=== PATIENT | female | born 1985 | race Native Hawaiian/Other Pacific Islander ===

== ENCOUNTER 2018-11-05 08:49 | Outpatient (CLI) | payer OTHER ==
[2018-11-05] MEDS ORDERED: IOTHALAMATE MEGLUMINE 50 ML VIAL ONE (09:08)
[2018-11-05] MEDS ORDERED: GADOBUTROL 10 MMOL/10 ML VIAL ONE (09:09)
[2018-11-05] MEDS ORDERED: GADOPENTETATE DIMEGLUMINE 5 ML VIAL IVP ONE ×2 (09:10→10:05)
[2018-11-05] MEDS ORDERED: BUFFERED LIDOCAINE 10 ML SYRINGE ONE (09:11)
[2018-11-05] MEDS ORDERED: IOTHALAMATE MEGLUMINE 50 ML VIAL IVP ONE (10:05)
[2018-11-05] MEDS ORDERED: BUFFERED LIDOCAINE 10 ML SYRINGE IU ONE (10:05)
--- NOTE | 2018-11-05 13:29 | XRAY Report ---
Reason: PAIN IN UNSPECIFIED SHOULDER Procedure Date: 11/05/2018 Accession Number: [id number] / [id number] Procedure: FL - Arthrogram Needle Placement CPT Code: FULL RESULT: EXAM: LEFT SHOULDER ARTHROGRAPHIC INJECTION WITH FLUOROSCOPIC GUIDANCE EXAM DATE: 11/05/2018 09:52 AM. CLINICAL HISTORY: Pain left shoulder COMPARISON: None. TECHNIQUE: The risks, benefits, and alternatives of the procedure were discussed with the patient. All questions were answered. Written and verbal consent were obtained. The left glenohumeral joint was marked under fluoroscopy and prepped and draped in a sterile manner. Local anesthesia was performed with 1% lidocaine. A 22-gauge needle was then inserted into the glenohumeral joint. 10 mL of a dilute gadolinium solution was then injected. The needle was removed without immediate complication. Other: None. Fluoroscopy Time: 45 seconds. Number of Images: 1. FINDINGS: Bones and joints: No fracture or subluxation. Injection: Fluoroscopic images demonstrate needle placement and contrast in the left glenohumeral joint. No contrast extravasation outside of the glenohumeral joint. IMPRESSION: Successful fluoroscopically guided arthrographic injection of the left shoulder. RADIA
--- NOTE | 2018-11-06 16:19 | MRI Report ---
Reason: PAIN IN UNSPECIFIED SHOULDER Procedure Date: 11/05/2018 Accession Number: [id number] / [id number] Procedure: MRI - Arthrogram Shoulder LT CPT Code: FULL RESULT: EXAM: LEFT SHOULDER MRI ARTHROGRAM WITH CONTRAST EXAM DATE: 11/05/2018 10:40 AM. CLINICAL HISTORY: Left shoulder pain. Limited range of motion. COMPARISON: None. TECHNIQUE: Multiplanar, multisequence T1-weighted and fluid-sensitive sequences of the shoulder after an arthrographic injection of dilute gadolinium, dictated under a separate exam. Other: None. FINDINGS: Acromioclavicular Region: The acromion is type I. The acromioclavicular joint is unremarkable. The coracoacromial and coracoclavicular ligaments are intact. There is no contrast or fluid in the subacromial/subdeltoid bursa. Glenohumeral Region: No subluxation. No loose bodies. The articular cartilage is unremarkable. The glenohumeral ligaments and joint capsule are unremarkable. Bone Marrow: No fracture, marrow edema or bone lesions. Labrum: The labrum is unremarkable. Biceps Tendon: The long head of the biceps tendon and biceps sherif are intact. Musculature/Rotator Cuff: Minimal articular surface fraying at the supraspinatus tendon. The infraspinatus, teres minor, and subscapularis tendons are unremarkable. No edema or fatty atrophy. Other: The subcutaneous tissues are unremarkable. IMPRESSION: 1. Minimal articular surface fraying at the supraspinatus tendon. 2. No labral tear. RADIA
== END 2018-11-05 08:50 | disposition home or self-care (01) ==
LOC: DI 08:49 → MERGE 09:00
PROVIDERS: ATTEND Nurse Practitioner Family
DX: M25.512 Pain in left shoulder (principal)
CPT/HCPCS: 23350; 73222; 77002; Q9961

== ENCOUNTER 2019-08-04 10:28 | Emergency (ER) | payer OTHER ==
[2019-08-04 11:25] LABS: BASOPHILS # (AUTO) 0.1 10^3/uL (0.0-0.1); BASOPHILS % (AUTO) 0.6 %; EOSINOPHILS # (AUTO) 0.1 10^3/uL (0.0-0.7); EOSINOPHILS % (AUTO) 1.3 %; HGB - HEMOGLOBIN 14.2 g/dL (12.0-16.0); LYMPHOCYTES # (AUTO) 2.3 10^3/uL (1.5-3.5); MEAN CORPUSCULAR HEMOGLOBIN 29.2 pg (27.0-31.0); MEAN CORPUSCULAR HGB CONC 33.1 g/dL (32.0-36.0); MEAN CORPUSCULAR VOLUME 88.1 fL (81.0-99.0); MEAN PLATELET VOLUME 10.8 fL (7.9-10.8); MONOCYTES # (AUTO) 0.4 10^3/uL (0.0-1.0); MONOCYTES % (AUTO) 3.9 %; NEUTROPHILS # (AUTO) 7.2 10^3/uL (1.5-6.6); NEUTROPHILS % (AUTO) 70.8 %; PLT - PLATELET COUNT 237 10^3/uL (130-450); RED BLOOD COUNT 4.87 10^6/uL (4.20-5.40); RED CELL DISTRIBUTION WIDTH 12.5 % (12.0-15.0); WHITE BLOOD COUNT 10.2 x10^3/uL (4.8-10.8)
[2019-08-04 11:38] LABS: ALBUMIN 4.4 g/dL (3.2-5.5); ALBUMIN/GLOBULIN RATIO 1.2 (1.0-2.2); BILIRUBIN,TOTAL 0.6 mg/dL (0.2-1.0); CALCIUM 9.3 mg/dL (8.5-10.3); CREATININE 0.9 mg/dL (0.4-1.0)
--- NOTE | 2019-08-04 12:33 | ED Physician Documentation ---
History of Present Illness - Stated complaint Stated Complaint: CP - Chief complaint Chief Complaint: Cardiac - History obtained from History obtained from: Patient - History of Present Illness Timing: Today - Additonal information Additional information: Patient comes emergency department complaining of pain in a line just to the left of her sternum since this morning. Patient states that hurts worse to take a deep breath. She denies any cough or fever. No shortness of breath. No nausea or vomiting. Patient states she has felt bloated in her abdomen but does not have abdominal pain. No radiation of the pain to anywhere else. No diaphoresis or lightheadedness. Patient is otherwise healthy. She has no history of diabetes, hypertension, or hyperlipidemia. She denies any decreased exercise tolerance recently. She states she does have a history in the family of coronary artery disease but this does not occur until older age. No family members with MIs in 20s, 30s or 40s. Patient states her pain seems to be a little better than it was earlier. She states she began to feel little bit anxious after the pain did not go away after eating. Patient denies any history of ulcers or GERD. No other complaints at this time. Review of Systems Ten Systems: 10 systems reviewed and negative Constitutional: reports: Reviewed and negative Eyes: reports: Reviewed and negative Ears: reports: Reviewed and negative Nose: reports: Reviewed and negative Throat: reports: Reviewed and negative Cardiac: reports: Chest pain / pressure Respiratory: reports: Reviewed and negative GI: reports: Reviewed and negative : reports: Reviewed and negative Skin: reports: Reviewed and negative Musculoskeletal: reports: Reviewed and negative Neurologic: reports: Reviewed and negative Psychiatric: reports: Reviewed and negative Endocrine: reports: Reviewed and negative Immunocompromised: reports: Reviewed and negative PD PAST MEDICAL HISTORY - Past Medical History Past Medical History: No - Past Surgical History Past Surgical History: No - Allergies Allergies/Adverse Reactions: Allergies Allergy/AdvReac Type Severity Reaction Status Date / Time No Known Drug Allergies Allergy Verified 08/04/19 10:44 - Social History Does the pt smoke?: No Smoking Status: Never smoker Does the pt drink ETOH?: No Does the pt have substance abuse?: No PD ED PE NORMAL - Vitals Vital signs reviewed: Yes - General General: Alert and oriented X 3, No acute distress - HEENT HEENT: PERRL - Neck Neck: Supple, no meningeal sign - Cardiac Cardiac: RRR, No murmur - Respiratory Respiratory: Clear bilaterally - Abdomen Abdomen: Soft, Non tender, Non distended - Derm Derm: Warm and dry - Extremities Extremities: No deformity - Neuro Neuro: Alert and oriented X 3, stopper grinder 2-12 intact, No motor deficit, No sensory deficit, Normal speech - Psych Psych: Normal mood, Normal affect Results - Vitals Vitals: Vital Signs - 24 hr 08/04/19 08/04/19 08/04/19 10:42 12:03 12:44 Temperature 36.5 C Heart Rate 88 72 Respiratory 15 26 H Rate Blood Pressure 128/96 H 135/65 H Blood Pressure 128/96 H [Right] O2 Saturation 97 99 08/04/19 14:00 Temperature 36.9 C Heart Rate 75 Respiratory 20 Rate Blood Pressure 128/62 Blood Pressure [Right] O2 Saturation 98 Oxygen O2 Source Room air - EKG (time done) 1042 Rate: Rate (enter#) (76) Rhythm: NSR Mcdowell: Normal Intervals: Normal CO QRS: Normal Ischemia: Normal ST segments. No: Hyperacute T waves, T wave inversion Compare to prior EKG: Old EKG unavailable Computer interpretation: Agree with computer (Interpreted by EDMD) - Labs Labs: Laboratory Tests 08/04/19 08/04/19 08/04/19 11:19 11:19 11:19 WBC 10.2 RBC 4.87 Hgb 14.2 Hct 42.9 MCV 88.1 MCH 29.2 MCHC 33.1 RDW 12.5 Plt Count 237 MPV 10.8 Neut # (Auto) 7.2 H Lymph # (Auto) 2.3 Liberty # (Auto) 0.4 Eos # (Auto) 0.1 Baso # (Auto) 0.1 Absolute Nucleated RBC 0.00 Nucleated RBC % 0.0 Sodium 137 Potassium 3.7 Chloride 102 Carbon Dioxide 26 Anion Gap 9.0 BUN 10 Creatinine 0.9 Estimated GFR (MDRD) 71 L Glucose 144 H Calcium 9.3 Total Bilirubin 0.6 AST 18 ALT 14 Alkaline Phosphatase 63 Troponin I High Sens < 2.3 L Total Protein 8.0 Albumin 4.4 Globulin 3.6 Albumin/Globulin Ratio 1.2 Lipase 32 - Rads (name of study) Chest x-ray Radiology: Final report received, EMP read indepedently (Final radiologic impression: No acute radiographic cardiopulmonary process) PD MEDICAL DECISION MAKING - ED course Complexity details: reviewed old records, reviewed results, re-evaluated patient, considered differential, d/w patient ED course: Patient was very well-appearing, and was very low risk for coronary artery disease. Additionally, her EKG and troponin were normal. I discussed with the patient that I do not find any evidence of an emergent condition causing her pain. I feel most likely, the pain is musculoskeletal in origin and we have discussed symptomatic management of this. We have also discussed the usual indications for return and follow-up. Departure - Departure Disposition: 01 Home, Self Care Clinical Impression: Chest wall pain Condition: Good Instructions: ED Chest Pain Costochondritis Comments: Your labs, EKG, and chest x-ray all look good. There is no evidence of an emergent condition causing your pain today. Additionally, your very low risk for any cardiac problems at this time. Please follow-up with your primary care physician as needed. Discharge Date/Time: 08/04/19 14:10
--- NOTE | 2019-08-04 13:30 | XRAY Report ---
Reason: CHEST PAIN Procedure Date: 08/04/2019 Accession Number: [id number] / [id number] Procedure: XR - Chest 2 View X-Ray CPT Code: 59375 Final Report FULL RESULT: EXAM: CHEST RADIOGRAPHY EXAM DATE: 08/04/2019 01:15 PM. CLINICAL HISTORY: CHEST PAIN. COMPARISON: None. TECHNIQUE: 2 views. FINDINGS: Lungs/Pleura: No focal opacities evident. No pleural effusion. No pneumothorax. Normal volumes. Mediastinum: Heart and mediastinal contours are unremarkable. Other: None. IMPRESSION: No acute radiographic cardiopulmonary process RAD[facility]
[2019-08-04 14:10] VITALS: BP 128/62
== END 2019-08-04 14:10 | disposition home or self-care (01) ==
LOC: ED 10:28
DX: R07.89 Other chest pain (principal); Z82.49 Family history of ischemic heart disease and other diseases of the circulatory system
CPT/HCPCS: 36415; 71046; 80053; 83690; 84484; 85025; 93005; 99284

== ENCOUNTER 2020-10-25 16:45 | Emergency (ER) | payer OTHER ==
[2020-10-25] MEDS ORDERED: ACETAMINOPHEN 325 MG TABLET PO STA (17:12)
[2020-10-25] MEDS ORDERED: IBUPROFEN 800 MG TABLET PO STA (17:12)
--- NOTE | 2020-10-25 17:21 | ED Physician Documentation ---
History of Present Illness - Stated complaint Stated Complaint: VACCINE REACTION - Chief complaint Chief Complaint: Allergic Rx - History obtained from History obtained from: Patient, Family - History of Present Illness Timing: Yesterday Pain level max: 5 Pain level now: 5 - Additonal information Additional information: 35-year-old female presents to the emergency department stating she had her second Covid vaccination yesterday, today has fever, body aches and felt like she was having a hard time breathing. Minimal cough. Has not taken anything for this. Nothing makes it better or worse. Denies any possibility of . No history of asthma or breathing issues Review of Systems Ten Systems: 10 systems reviewed and negative Constitutional: reports: Fever, Chills, Myalgias Nose: denies: Rhinorrhea / runny nose, Congestion GI: denies: Vomiting, Diarrhea : denies: Now EGA Skin: denies: Rash Musculoskeletal: denies: Neck pain, Back pain Neurologic: denies: Headache PD PAST MEDICAL HISTORY - Past Medical History Past Medical History: No - Past Surgical History Past Surgical History: No - Present Medications Home Medications: Ambulatory Orders Medication Instructions Recorded Confirmed Albuterol Sulf [Ventolin Hfa 1 - 2 puffs INH Q4HR PRN #1 inhaler 10/25/20 Inhaler] - Allergies Allergies/Adverse Reactions: Allergies Allergy/AdvReac Type Severity Reaction Status Date / Time No Known Drug Allergies Allergy Verified 10/25/20 16:53 - Social History Does the pt smoke?: No Smoking Status: Never smoker Does the pt drink ETOH?: No Does the pt have substance abuse?: No - Immunizations Immunizations are current?: Yes PD ED PE NORMAL - Vitals Vital signs reviewed: Yes - General General: Alert and oriented X 3, No acute distress - HEENT HEENT: Moist mucous membranes - Neck Neck: Supple, no meningeal sign - Cardiac Cardiac: RRR, Strong equal pulses - Respiratory Respiratory: No respiratory distress, Clear bilaterally - Abdomen Abdomen: Soft, Non tender, Non distended - Back Back: No CVA TTP, No spinal TTP - Derm Derm: Warm and dry, No rash - Neuro Neuro: Alert and oriented X 3 - Psych Psych: Normal mood, Normal affect Results - Vitals Vitals: Vital Signs - 24 hr 10/25/20 16:47 Temperature 38.3 C H Heart Rate 113 H Respiratory 18 Rate Blood Pressure 142/92 H O2 Saturation 95 Oxygen O2 Source Room air - Rads (name of study) cxr Radiology: Prelim report reviewed, EMP read contemporaneously, See rad report (no acute abnormality.) PD MEDICAL DECISION MAKING - ED course Complexity details: reviewed results, re-evaluated patient, considered differential, d/w patient ED course: Patient is well-appearing, nontoxic. No hypoxia. No respiratory distress. Feels better after albuterol. Given Motrin and Tylenol. Fever decreased. We will continue supportive care and have her follow-up with her doctor for further care. She appears to be having A robust immune response to the vaccination. No evidence of allergic reaction. Patient counseled regarding signs and symptoms for which I believe and urgent re-evaluation would be necessary. Patient with good understanding of and agreement to plan and is comfortable going home at this time This document was made in part using voice recognition software. While efforts are made to proofread this document, sound alike and grammatical errors may occur. Departure - Departure Disposition: 01 Home, Self Care Clinical Impression: Fever Qualifiers: Fever type: unspecified Qualified Code(s): R50.9 - Fever, unspecified Vaccine reaction Qualifiers: Encounter type: initial encounter Qualified Code(s): T50.Z95A - Adverse effect of other vaccines and biological substances, initial encounter Condition: Good Instructions: Infecs Common Prevent Follow-Up: your,doctor as needed. [Other] Prescriptions: Albuterol Sulf [Ventolin Hfa Inhaler] 1 - 2 puffs INH Q4HR PRN #1 inhaler PRN Reason: Shortness Of Air/Wheezing Comments: This is a typical immune response to the vaccine. Your x-ray does not show any abnormalities. You can use the albuterol as needed for any difficulty breathing. Return if you worsen. Continue Motrin and Tylenol as needed at home.
--- NOTE | 2020-10-25 17:48 | XRAY Report ---
PROCEDURE: Chest 2 View X-Ray INDICATIONS: fever TECHNIQUE: 2 view(s) of the chest. COMPARISON: Chest x-ray 08/04/2019. FINDINGS: Surgical changes and devices: None. Lungs and pleura: There are linear opacities within the left lung base and right midlung likely repr esenting atelectasis. No definite focal consolidation. No pleural effusions or pneumothorax. Mediastinum: Mediastinal contours are normal. Heart size is normal. Bones and chest wall: No suspicious bony abnormalities. Soft tissues appear unremarkable. IMPRESSION: 1. Bilateral linear atelectasis. No definite acute consolidation. Reviewed by: Bernard Martinez MD on 10/25/2020 5:46 PM PDT Approved by: Bernard Martinez MD on 10/25/2020 5:46 PM PDT Station ID: [id number]
[2020-10-25] MEDS ORDERED: ALBUTEROL 1 PUFF INH STA (17:53)
[2020-10-25 18:24] VITALS: BP 120/83
== END 2020-10-25 18:24 | disposition home or self-care (01) ==
LOC: ED 16:45
DX: R50.9 Fever, unspecified (principal); T50.Z95A Adverse effect of other vaccines and biological substances, initial encounter
CPT/HCPCS: 71046; 94640; 94664; 99283; 99284; A9270